=== PATIENT | female | born 1955 | race Caucasian/White ===

== ENCOUNTER 2021-08-13 08:06 | Day surgery (SDC) | payer OTHER, BC ==
[2021-08-08 14:57] VITALS: BMI 20.9
[~2021-08-13 08:06] MED LIST: LIDOCAINE HCL 2% (50ML VIAL) INF ONE
[2021-08-13] MEDS ORDERED: ONDANSETRON 4 MG/2 ML VIAL ONE (08:42)
[2021-08-13] MEDS ORDERED: LIDOCAINE HCL/PF 2% SDV 5ML VIAL ONE (08:42)
[2021-08-13] MEDS ORDERED: KETOROLAC TROMETHAMINE 30 MG/1 ML VIAL ONE (08:42)
[2021-08-13] MEDS ORDERED: MIDAZOLAM HCL 2 MG/2 ML SINGLE DOSE VIAL ONE (08:43)
[2021-08-13] MEDS ORDERED: PROPOFOL 20 ML ONE (08:43)
[2021-08-13] MEDS ORDERED: LIDOCAINE HCL 2% (20ML MULTI-DOSE VIAL) ONE (09:11)
[2021-08-13] MEDS ORDERED: LIDOCAINE HCL 2% (50ML VIAL) INF ONE (09:30)
[2021-08-13 10:30] VITALS: TEMP 98.1
[2021-08-13 11:00] VITALS: BP 100/55; PULSE 75
== END 2021-08-13 11:00 | disposition home or self-care (01) ==
LOC: FASU 08:06
PROVIDERS: ATTEND Orthopaedic Surgery Hand Surgery
PROC: 0LN70ZZ Release Right Hand Tendon, Open Approach (ICD-10-PCS; principal; 2021-08-13 09:30)
DX: M65.341 Trigger finger, right ring finger (principal)